=== PATIENT | male | born 1965 | race Caucasian/White ===

== ENCOUNTER 2017-01-06 17:04 | Emergency (ER) | payer OTHER ==
[2017-01-06 17:08] VITALS: BP 134/92
[2017-01-06] MEDS ORDERED: DIPHTH,PERTUSS(ACELL),TET TOX 0.5 ML DISP.SYRIN. VAX IM ONE ×2 (18:14→18:15)
[2017-01-06] MEDS ORDERED: DIPH,PERTUSS(ACELL),TET PED/PF 0.5 ML VIAL VAX IM ONE (18:15)
--- NOTE | 2017-01-07 05:21 | ED.ADGEN ---
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 Patient state he cut his elbow on a forklift earlier this morning. On exam, the patient has a deep abrasion which adjoining a a 2 cm laceration with less than 0.5 mm meters of gapping. It is clean, bleeding is controlled. Injury occurred approximately 8 hours ago. Patient's last known tetanus is unknown. No other symptoms or complaints. Review of Systems Review of Systems ROS as per HPI Current Medications Current Medications Current Medications Medications (Trade) Dose Ordered Sig/Tisha Start Time Stop Time Status Last Admin Dose Admin Diphtheria/ Tetanus/Acell Pertussis (Boostrix) 0.5 ml STK-MED ONCE 01/06/17 18:14 01/06/17 18:15 DC Diphtheria/ Tetanus/Acell Pertussis (Infanrix Dtap Vial) 0.5 ml ONCE ONCE 01/06/17 18:15 01/06/17 18:16 UNV Allergies Allergies Allergies Coded Allergies Type Severity Reaction Last Updated Verified No Known Drug Allergies 01/06/17 No Physical Exam Physical Exam Constitutional: Well developed, well nourished, no acute distress, non-toxic appearance. [] HENT: Normocephalic, atraumatic, bilateral external ears normal, oropharynx moist, no oral exudates, nose normal. [] Eyes: PERRLA, EOMI, conjunctiva normal, no discharge. [] Neck: Normal range of motion, no tenderness, supple, no stridor. [] Cardiovascular:Heart rate regular rhythm, no murmur [] Lungs & Thorax: Bilateral breath sounds clear to auscultation [] Abdomen: Bowel sounds normal, soft, no tenderness, no masses, no pulsatile masses. [] Skin: Warm, dry, no erythema, no rash. [] Back: No tenderness, no CVA tenderness. [] Extremities: Right external proximal forearm laceration, deep abrasion which adjoining a a 2 cm laceration with less than 0.5 mm meters of gapping. Wound is clean, bleeding is controlled. Laceration is not above the joint. There is no bony tenderness or joint pain on range of motion Neurologic: Alert and oriented X 3, normal motor function, normal sensory function, no focal deficits noted. [] Psychologic: Affect normal, judgement normal, mood normal. [] Current Patient Data Vital Signs Vital Signs Date Time Temp Pulse Resp B/P (MAP) Pulse Ox O2 Delivery O2 Flow Rate FiO2 01/06/17 17:08 98.1 78 18 97 Room Air EKG EKG [] Radiology/Procedures Radiology/Procedures [] Course & Med Decision Making Course & Med Decision Making Pertinent Labs and Imaging studies reviewed. (See chart for details) [Tetanus updated, wound cleaned, Steri-Strip placed. Typical wound care instructions given. PCP follow-up as needed.] Final Impression Final Impression [1. right elbow laceration] Problems: Dragon Disclaimer Dragon Disclaimer This electronic medical record was generated, in whole or in part, using a voice recognition dictation system. CLAU CLINTON DO Jan 07, 2017 05:21
== END 2017-01-06 18:38 | disposition home or self-care (01) ==
LOC: ER 17:04
DX: S01.111A Laceration without foreign body of right eyelid and periocular area, initial encounter (principal); E03.9 Hypothyroidism, unspecified; W45.8XXA Other foreign body or object entering through skin, initial encounter; Y93.89 Activity, other specified; Y99.8 Other external cause status; Y92.89 Other specified places as the place of occurrence of the external cause
CPT/HCPCS: 90471; 90715; 99283-25

== ENCOUNTER 2018-11-22 23:20 | Emergency (ER) | payer OTHER ==
--- NOTE | 2018-11-22 23:35 | ED.ADGEN ---
Past History Past Medical History: Hypothyroid, Other Past Medical History Past Head Injury Smoking: Cigarettes Alcohol Use: None Drug Use: None Adult General Chief Complaint Chief Complaint ".. He was siting at the bar.. with his head down.. he had been drinking.. I went to check on him.. and he stood up and fell backwards.. hitting his head on the concrete floor..." HPI HPI Patient is a 53 year old male who presents with hx of syncope and head injury. Pt. does not remember events prior to and post his syncopal event and head injury. Patient has had history of previous head injury. Patient does admit to heavy alcohol use tonight. Patient denies any travel or specific ill contacts. Patient in the pass follow-up with Dr. Josue , but currently follows at [place]. Patient moves all extremities on request. Currently requesting discharge shortly after arrival. Witnessed to his injuries stated he had no seizure-like activity but was obviously stunned after hitting the back of his head. Pt. has hx of prior head injury. Pt. denies illicit drug use. Pt. works as cdl dedicated truck driver. Review of Systems Review of Systems Constitutional: Denies fever or chills [] Eyes: Denies change in visual acuity, redness, or eye pain [] HENT: Denies nasal congestion or sore throat [] Respiratory: Denies cough or shortness of breath [] Cardiovascular: No additional information not addressed in HPI [] GI: Denies abdominal pain, nausea, vomiting, bloody stools or diarrhea [] : Denies dysuria or hematuria [] Musculoskeletal: Denies back pain or joint pain [] Integument: Denies rash or skin lesions [] Neurologic: Plaints of contusion posterior head and headache. Denies, focal weakness or sensory changes [] Endocrine: Denies polyuria or polydipsia [] All other systems were reviewed and found to be within normal limits, except as documented in this note. Family History Family History Non-contributory Current Medications Current Medications Current Medications Medications (Trade) Dose Ordered Sig/Tisha Start Time Stop Time Status Last Admin Dose Admin Folic Acid (FOLIC ACID SYRINGE for ER) 5 mg STK-MED ONCE 11/22/18 23:40 11/22/18 23:41 DC Lactated Ringer's 1,000 ml @ 100 mls/hr Q10H 11/22/18 23:45 11/23/18 09:44 11/22/18 23:45 100 MLS/HR Multivitamins/ Minerals 10 ml/ Folic Acid 1 mg/ Thiamine HCl 100 mg/Lactated Ringer's 1,011.2 ml @ 1,011.2 mls/hr 1X ONCE 11/22/18 23:45 11/23/18 00:44 DC 11/22/18 23:45 1,011.2 MLS/HR Potassium Chloride (KCl Oral Soln) 40 meq 1X ONCE 11/23/18 01:00 11/23/18 02:08 DC 11/23/18 01:23 40 MEQ Thiamine HCl (Thiamine Im) 200 mg STK-MED ONCE 11/22/18 23:41 11/22/18 23:42 DC Allergies Allergies Allergies Coded Allergies Type Severity Reaction Last Updated Verified No Known Drug Allergies 01/06/17 No Physical Exam Physical Exam Constitutional: Mild distress, intoxicated in appearance. [] HENT: Normocephalic, contusion to posterior scalp, bilateral external ears normal, oropharynx moist, no oral exudates, nose normal. [TM clear. Eyes: PERRLA, EOMI, conjunctiva normal, no discharge. [] Neck: Normal range of motion, no tenderness, supple, no stridor. [] Cardiovascular:Heart rate regular rhythm, no murmur [] Lungs & Thorax: Bilateral breath sounds with apex with scattered wheezes on auscultation [] Abdomen: Bowel sounds normal, soft, no tenderness, no masses, no pulsatile masses. [] Skin: Warm, dry, no erythema, no rash. [] Back: No tenderness, no CVA tenderness. [] Extremities: No tenderness, no cyanosis, no clubbing, ROM intact, no edema. [] Neurologic: Alert and oriented X 3, normal motor function, normal sensory function, no gross focal deficits noted. [] DTR + 2 patella and brachial. No d rift. Rt. hand dominate. Pt Ambulatory/ Psychologic: Affect non-concerned., judgement normal, mood normal. [] Current Patient Data Vital Signs Vital Signs Date Time Temp Pulse Resp B/P (MAP) Pulse Ox O2 Delivery O2 Flow Rate FiO2 11/23/18 02:58 79 16 109/21 (50) 97 Room Air 7/10/19 23:20 97.0 Lab Results Laboratory Tests Test 11/22/18 23:27 11/23/18 00:05 White Blood Count 10.9 x10^3/uL (4.0-11.0) Red Blood Count 4.52 x10^6/uL (4.30-5.70) Hemoglobin 15.2 g/dL (13.0-17.5) Hematocrit 44.4 % (39.0-53.0) Mean Corpuscular Volume 98 fL (79-100) Mean Corpuscular Hemoglobin 34 pg (25-35) Mean Corpuscular Hemoglobin Concent 34 g/dL (31-37) Red Cell Distribution Width 14.1 % (11.5-14.5) Platelet Count 276 x10^3/uL (140-400) Neutrophils (%) (Auto) 42 % (31-73) Lymphocytes (%) (Auto) 39 % (24-48) Monocytes (%) (Auto) 6 % (0-9) Eosinophils (%) (Auto) 11 % (0-3) H Basophils (%) (Auto) 1 % (0-3) Neutrophils # (Auto) 4.6 x10^3uL (1.8-7.7) Lymphocytes # (Auto) 4.3 x10^3/uL (1.0-4.8) Monocytes # (Auto) 0.6 x10^3/uL (0.0-1.1) Eosinophils # (Auto) 1.2 x10^3/uL (0.0-0.7) H Basophils # (Auto) 0.1 x10^3/uL (0.0-0.2) Platelet Estimate Adequate (ADEQUATE) Platelet Clumps, EDTA Present Large Platelets Occ Sodium Level 138 mmol/L (136-145) Potassium Level 3.0 mmol/L (3.5-5.1) L Chloride Level 102 mmol/L (98-107) Carbon Dioxide Level 24 mmol/L (21-32) Anion Gap 12 (6-14) Blood Urea Nitrogen 18 mg/dL (8-26) Creatinine 1.2 mg/dL (0.7-1.3) Estimated GFR (Cockcroft-Gault) 63.6 Glucose Level 130 mg/dL (70-99) H Calcium Level 8.8 mg/dL (8.5-10.1) Magnesium Level 2.3 mg/dL (1.8-2.4) Total Bilirubin 0.3 mg/dL (0.2-1.0) Direct Bilirubin 0.1 mg/dL (0.0-0.2) Aspartate Amino Transferase (AST) 13 U/L (15-37) L Alanine Aminotransferase (ALT) 17 U/L (16-63) Alkaline Phosphatase 49 U/L (46-116) Creatine Kinase 83 U/L (39-308) Troponin I Quantitative < 0.017 ng/mL (0-0.055) VO-Bfz-K-Type Natriuretic Peptide 5 pg/mL (0-124) Total Protein 7.4 g/dL (6.4-8.2) Albumin 4.2 g/dL (3.4-5.0) Lipase 175 U/L (73-393) Ethyl Alcohol Level 224 mg/dL (0-10) H Prothrombin Time 9.9 SEC (9.4-11.4) Prothrombin Time INR 1.0 (0.9-1.1) PTT 23 SEC (23-33) EKG EKG My interpretation of EKG shows a sinus rate 68, contour ab. anterolateral. [] Radiology/Procedures Radiology/Procedures [][place] [address] IMAGING REPORT Signed PATIENT: FREDERIC LANDA ACCOUNT: [id number] : 1965 LOCATION: ER AGE: 53 SEX: M EXAM STATUS: REG ER ORD. PHYSICIAN: HARPER GUERRA MD REASON: ETOH, Fall, head injury PROCEDURE: CT HEAD AND CERVICAL SPINE WO INDICATION: Status post fall with trauma COMPARISON: None. TECHNIQUE: Axial CT images obtained through the head and cervical spine. One or more of the following individualized dose reduction techniques were utilized for this examination: 1. Automated exposure control; 2. Adjustment of the mA and/or kV according to patient size; 3. Use of iterative reconstruction technique. FINDINGS: Head: No midline shift. Suprasellar cistern is not effaced. No hydrocephalus. No definite acute intracranial hemorrhage. Cervical spine: Degenerative changes of the cervical spine without definite acute fracture or dislocation. There is some central canal and neural foraminal stenosis with disc protrusions as well as osteophyte formation. IMPRESSION: 1. No definite acute intracranial hemorrhage. 2. Degenerative changes of the cervical spine without definite acute fracture or dislocation. Electronically signed by: Moses Dinero MD (11/23/2018 1:39 AM) [facility] Course & Med Decision Making Course & Med Decision Making Pertinent Labs and Imaging studies reviewed. (See chart for details) Pt. currently refuses further labs and urine testing. Pt. exhibit UCAR capacity. at bedside states he is at his normal baseline mental status. Begged patient to reconsider his refusal for admission and further evaluation. Discussed risk of discharge and multiple reasons for syncope. states that she'll be responsible for his care. It is also aware of risk of discharge. Patient push fruit juices. 4 further alcohol. Avoid NSAIDs. Return anytime he elects to be admitted for further evaluation. Begged pt. to reconsider his decision to leave. [] Final Impression Final Impression 1. Syncope 2. Head Injury[] 3. Alcohol Intoxication 224 4. Critical Hypokalemia 3.0 5. Elevated Glucose 130 6. Concussion Dragon Disclaimer Dragon Disclaimer This electronic medical record was generated, in whole or in part, using a voice recognition dictation system. Discharge Summary Visit Information Final Diagnosis Problems Medical Problems: (1) Alcohol intoxication Status: Acute (2) Head injury Status: Acute Brief Hospital Course Allergies Allergies Coded Allergies Type Severity Reaction Last Updated Verified No Known Drug Allergies 01/06/17 No Vital Signs Vital Signs Date Time Temp Pulse Resp B/P (MAP) Pulse Ox O2 Delivery O2 Flow Rate FiO2 11/23/18 02:58 79 16 109/21 (50) 97 Room Air 11/22/18 23:20 97.0 Lab Results Laboratory Tests Test 11/22/18 23:27 11/23/18 00:05 White Blood Count 10.9 x10^3/uL (4.0-11.0) Red Blood Count 4.52 x10^6/uL (4.30-5.70) Hemoglobin 15.2 g/dL (13.0-17.5) Hematocrit 44.4 % (39.0-53.0) Mean Corpuscular Volume 98 fL (79-100) Mean Corpuscular Hemoglobin 34 pg (25-35) Mean Corpuscular Hemoglobin Concent 34 g/dL (31-37) Red Cell Distribution Width 14.1 % (11.5-14.5) Platelet Count 276 x10^3/uL (140-400) Neutrophils (%) (Auto) 42 % (31-73) Lymphocytes (%) (Auto) 39 % (24-48) Monocytes (%) (Auto) 6 % (0-9) Eosinophils (%) (Auto) 11 % (0-3) Basophils (%) (Auto) 1 % (0-3) Neutrophils # (Auto) 4.6 x10^3uL (1.8-7.7) Lymphocytes # (Auto) 4.3 x10^3/uL (1.0-4.8) Monocytes # (Auto) 0.6 x10^3/uL (0.0-1.1) Eosinophils # (Auto) 1.2 x10^3/uL (0.0-0.7) Basophils # (Auto) 0.1 x10^3/uL (0.0-0.2) Platelet Estimate Adequate (ADEQUATE) Platelet Clumps, EDTA Present Large Platelets Occ Sodium Level 138 mmol/L (136-145) Potassium Level 3.0 mmol/L (3.5-5.1) Chloride Level 102 mmol/L (98-107) Carbon Dioxide Level 24 mmol/L (21-32) Anion Gap 12 (6-14) Blood Urea Nitrogen 18 mg/dL (8-26) Creatinine 1.2 mg/dL (0.7-1.3) Estimated GFR (Cockcroft-Gault) 63.6 Glucose Level 130 mg/dL (70-99) Calcium Level 8.8 mg/dL (8.5-10.1) Magnesium Level 2.3 mg/dL (1.8-2.4) Total Bilirubin 0.3 mg/dL (0.2-1.0) Direct Bilirubin 0.1 mg/dL (0.0-0.2) Aspartate Amino Transf (AST/SGOT) 13 U/L (15-37) Alanine Aminotransferase (ALT/SGPT) 17 U/L (16-63) Alkaline Phosphatase 49 U/L (46-116) Creatine Kinase 83 U/L (39-308) Troponin I Quantitative < 0.017 ng/mL (0-0.055) PC-Xkm-M-Type Natriuretic Peptide 5 pg/mL (0-124) Total Protein 7.4 g/dL (6.4-8.2) Albumin 4.2 g/dL (3.4-5.0) Lipase 175 U/L (73-393) Ethyl Alcohol Level 224 mg/dL (0-10) Prothrombin Time 9.9 SEC (9.4-11.4) Prothromb Time International Ratio 1.0 (0.9-1.1) Activated Partial Thromboplast Time 23 SEC (23-33) Brief Hospital Course Mr. Landa is a 53 old male who presented with hx syncope and head injury. Refuses admit. Refuses urine. Discharge to care of . Exhibits UCAR capacity Discharge Information Condition at Discharge: Improved Disposition/Orders: D/C to Home Dischare Medications Current Medications Lactated Ringer's 1,000 ml @ 100 mls/hr Q10H IV Last administered on 11/22/18at 23:45; Admin Dose 100 MLS/HR; Start 11/22/18 at 23:45; Stop 11/23/18 at 09:44 Multivitamins/ Minerals 10 ml/ Folic Acid 1 mg/ Thiamine HCl 100 mg/Lactated Rin tello's 1,011.2 ml @ 1,011.2 mls/hr 1X ONCE IV Last administered on 11/22/18at 23:45; Admin Dose 1,011.2 MLS/HR; Start 11/22/18 at 23:45; Stop 11/23/18 at 00:44; Status DC Folic Acid (FOLIC ACID SYRINGE for ER) 5 mg STK-MED ONCE IV ; Start 11/22/18 at 23:40; Stop 11/22/18 at 23:41; Status DC Thiamine HCl (Thiamine Im) 200 mg STK-MED ONCE IM ; Start 11/22/18 at 23:41; Stop 11/22/18 at 23:42; Status DC Potassium Chloride (KCl Oral Soln) 40 meq 1X ONCE PO Last administered on 11/23/18at 01:23; Admin Dose 40 MEQ; Start 11/23/18 at 01:00; Stop 11/23/18 at 02:08; Status DC Dragon Disclaimer This chart was dictated in whole or in part using Voice Recognition software in a busy, high-work load, and often noisy Emergency Department environment. It may contain unintended and wholly unrecognized errors or omissions. HARPER GUERRA MD Nov 22, 2018 23:35
[2018-11-22] MEDS ORDERED: FOLIC ACID 5 MG/ML SYRINGE for ER IV ONE (23:40)
[2018-11-22] MEDS ORDERED: THIAMINE IM 200 MG/2 ML VIAL. IM ONE (23:41)
[2018-11-22] MEDS ORDERED: IV RINGERS SOLUTION,LACTATED 1,000 ML IV SCH (23:45)
[2018-11-22] MEDS ORDERED: MVI, ADULT NO.4 WITH VIT K 10 ML, FOLIC ACID SYRINGE for ER 1 MG, THIAMINE INJ 100 MG i... IV ONE ×4 (23:45)
[2018-11-22 23:54] LABS: BASO # 0.1 x10^3/uL (0.0-0.2); BASO % 1 % (0-3); EOS # 1.2 x10^3/uL (0.0-0.7); EOS % 11 % (0-3); HEMATOCRIT 44.4 % (39.0-53.0); HEMOGLOBIN 15.2 g/dL (13.0-17.5); LYMPH # 4.3 x10^3/uL (1.0-4.8); LYMPH % 39 % (24-48); MEAN CORPUSCULAR HEMOGLOBIN 34 pg (25-35); MEAN CORPUSCULAR HGB CONC 34 g/dL (31-37); MEAN CORPUSCULAR VOLUME 98 fL (79-100); MONO # 0.6 x10^3/uL (0.0-1.1); MONO % 6 % (0-9); NEUT # 4.6 x10^3uL (1.8-7.7); NEUT % 42 % (31-73); PLATELET COUNT 276 x10^3/uL (140-400); RED BLOOD COUNT 4.52 x10^6/uL (4.30-5.70); RED CELL DISTRIBUTION WIDTH 14.1 % (11.5-14.5); WHITE BLOOD COUNT 10.9 x10^3/uL (4.0-11.0)
[2018-11-23 00:07] LABS: ALBUMIN 4.2 g/dL (3.4-5.0); CALCIUM 8.8 mg/dL (8.5-10.1); CREATININE 1.2 mg/dL (0.7-1.3); DIRECT BILIRUBIN 0.1 mg/dL (0.0-0.2); GFR 63.6; MAGNESIUM 2.3 mg/dL (1.8-2.4); TOTAL BILIRUBIN 0.3 mg/dL (0.2-1.0); TOTAL PROTEIN 7.4 g/dL (6.4-8.2)
[2018-11-23 00:11] LABS: PLATELET CLUMP PRESENT; PLT ESTIMATE ADEQUATE (ADEQUATE)
[2018-11-23] MEDS ORDERED: POTASSIUM CHLORIDE 20 MEQ/15 ML ORAL LIQUID. PO ONE (01:00)
--- NOTE | 2018-11-23 01:42 | RAD ---
INDICATION: Status post fall with trauma COMPARISON: None. TECHNIQUE: Axial CT images obtained through the head and cervical spine. One or more of the following individualized dose reduction techniques were utilized for this examination: 1. Automated exposure control; 2. Adjustment of the mA and/or kV according to patient size; 3. Use of iterative reconstruction technique. FINDINGS: Head: No midline shift. Suprasellar cistern is not effaced. No hydrocephalus. No definite acute intracranial hemorrhage. Cervical spine: Degenerative changes of the cervical spine without definite acute fracture or dislocation. There is some central canal and neural foraminal stenosis with disc protrusions as well as osteophyte formation. IMPRESSION: 1. No definite acute intracranial hemorrhage. 2. Degenerative changes of the cervical spine without definite acute fracture or dislocation. Electronically signed by: Moses Dinero MD (11/23/2018 1:39 AM) [facility]
[2018-11-23 02:58] VITALS: BP 109/21
--- NOTE | 2018-11-23 07:59 | RAD ---
Chest radiograph 11/22/2018 11:31 PM INDICATION: EtOH, fall COMPARISON: None available TECHNIQUE: Frontal view of the chest is provided. FINDINGS: The cardiomediastinal silhouette is within normal limits. There are no pleural effusions. There is no pulmonary vascular congestion. There is no pneumothorax. The lungs are clear. No significant osseous abnormality is identified. IMPRESSION: No acute cardiopulmonary process. Electronically signed by: Coco Jorge MD (11/23/2018 7:56 AM) [id number]
== END 2018-11-23 03:02 | disposition home or self-care (01) ==
LOC: ER 23:20
DX: S06.0X0A Concussion without loss of consciousness, initial encounter (principal); S00.03XA Contusion of scalp, initial encounter; R55 Syncope and collapse; F10.129 Alcohol abuse with intoxication, unspecified; E87.6 Hypokalemia; R73.02 Impaired glucose tolerance (oral); E03.9 Hypothyroidism, unspecified; F17.210 Nicotine dependence, cigarettes, uncomplicated; Y90.7 Blood alcohol level of 200-239 mg/100 ml; W18.09XA Striking against other object with subsequent fall, initial encounter; Y93.89 Activity, other specified; Y92.89 Other specified places as the place of occurrence of the external cause; Y99.8 Other external cause status
CPT/HCPCS: 36415; 70450; 71045; 72125; 80048; 80076; 82550; 83690; 83735; 83880; 84443; 84484; 85025; 85610; 85730; 93005; 96365; 96366; 99285; G0480; J7120